=== PATIENT | female | born 1985 | race Caucasian/White ===

== ENCOUNTER → 2016-08-05 | Outpatient (REF) ==
[~2016-08-05] MED LIST: AUGMENTIN 875 M1 TAB PO; DEPO-PROVER150 MG/M1 IM; PRENATAL1 TA1; PROBIOTIC FORMU1 CAP
== END ==
LOC: WSOH 13:17
DX: Z02.89 Encounter for other administrative examinations (principal)

== ENCOUNTER → 2016-08-09 | Outpatient (REF) | LOC: WSOH 15:07 | DX: Z01.83 Encounter for blood typing (principal) ==

== ENCOUNTER → 2017-09-02 | Outpatient (CLI) | payer BC | LOC: COL.PUL 09:33 | DX: R94.2 Abnormal results of pulmonary function studies (principal) ==